=== PATIENT | female | born 1975 | race Caucasian/White ===

== ENCOUNTER 2018-06-06 15:33 | Emergency (ER) | payer BC ==
[~2018-06-06] VITALS: Ht 172.7 cm; Wt 150.6 kg
[2018-06-06 15:43] VITALS: BP 152/54
--- NOTE | 2018-06-06 15:52 | NUR ---
DR BRANNON NOTIFIED OF PT CONDITION. EKG SIGNED OFF. PT SENT BACK TO LOBBY TO WAIT FOR BED. CONDITION STABLE.
--- NOTE | 2018-06-06 16:30 | NUR ---
42 YO F PT C/O SHARP STERNAL CHEST PAIN, AND SORE UPPER BACK PAIN THAT STARTED TODAY WHILE SHOPPING. REPORTS DRY COUGH FOR PAST 3 DAYS. DENIES N/V FEVER OR SPUTUM. PT SPEAKING IN FULL AND COMPLETE SENTENCES THAT ARE APPOPRIATE. NO S/S OF ACUTE RESPIRATORY DISTRESS. PT REPORTS THAT SHE FEELS VERY FATIGUED FOR THE PAST 3 HOURS. AAOX4. GCS 15. CMS INTACT. RR EVEN AND UNLABORED. LUNGS CLEAR. ER MD BRANNON NOTIFIED. PT NEEDS MET. SAFETY PRECAUTIONS IN PLACE. WILL CONTINUE TO MONITOR.
--- NOTE | 2018-06-06 17:20 | NUR ---
pt resting comfortably in [facility] at this time. vss. safety precautions in place. will continue to monitor.
[2018-06-06 19:07] VITALS: BP 141/64
--- NOTE | 2018-06-06 19:07 | NUR ---
Patient discharged with v/s stable. Written and verbal after care instructions given and explained. Patient verbalized understanding. Ambulatory with steady gait. All questions addressed prior to discharge. Advised to follow up with PMD.
== END 2018-06-06 19:07 | disposition home or self-care (01) ==
LOC: MED 15:33
DX: R07.89 Other chest pain (principal); R06.02 Shortness of breath; R05 Cough; R94.31 Abnormal electrocardiogram [ECG] [EKG]; Z88.2 Allergy status to sulfonamides
CPT/HCPCS: 71045; 93005; 99284; Q0092